=== PATIENT | female | born 1990 | race Caucasian/White ===

== ENCOUNTER → 2017-05-26 | Outpatient (CLI) | payer OTHER ==
[~2017-05-26] MED LIST: BSP5 PO; BUPR-79 PO; CNC/18 PO; CNC/54 PO; IBUP-1451 PO
[2017-05-26 12:30] LABS: BASO % 0.7 %; BASO ABS # 0.04 K/uL (0-0.2); COMPLETE YES; EOS % 3.5 %; HEMATOCRIT 43.3 % (37-47); IG% 0.2 %; LYMPH % 31.5 %; MEAN CELL VOLUME 93.1 fL (80-100); MEAN CORPUSCULAR HEMOGLOBIN 30.8 pg (25-34); MEAN PLATELET VOLUME 10.2 fL (7.4-10.4); MONO % 9.6 %; NEUT % 54.5 %; PLATELET COUNT 310 K/uL (130-400); RED BLOOD COUNT 4.65 M/uL (4.2-5.4); WHITE BLOOD COUNT 6.04 K/uL (4.8-10.8)
[2017-05-26 13:31] LABS: ALT/SGPT 26 U/L (12-78); BLOOD UREA NITROGEN 13 mg/dl (7-18); BUN/CREATININE RATIO 16.7 (10-20); CALCIUM 9.5 mg/dl (8.5-10.1); CARBON DIOXIDE 27 mmol/L (21-32); CHLORIDE 108 mmol/L (98-107); CHOLESTEROL 125 mg/dl (0-200); CREATININE 0.75 mg/dl (0.60-1.20); GLUCOSE 78 mg/dl (70-99); POTASSIUM 3.9 mmol/L (3.5-5.1); SODIUM 141 mmol/L (136-145); TRIGLYCERIDES 111 mg/dl (0-150); VERY LOW DENSITY LIPOPROT CALC 22 mg/dl
[2017-05-26 13:40] LABS: ALKALINE PHOSPHATASE 81 U/L (45-117); AST/SGOT 19 U/L (15-37); CHOLESTEROL/HDL RATIO 2.9; HDL CHOLESTEROL 43 mg/dl; LDL CHOLESTEROL CALCULATED 60 mg/dl
== END | disposition home or self-care (01) ==
LOC: C.LABBFT 10:01
PROVIDERS: ATTEND Physician Assistant Medical
DX: M79.673 Pain in unspecified foot (principal)

== ENCOUNTER → 2018-01-29 | Day surgery (SDC) | payer OTHER ==
[2018-01-27 11:13] VITALS: BMI 48.0
--- NOTE | 2018-01-27 11:37 | PAT Medication Instructions ---
Service Date January 27, 2018. Current Home Medication List Misc Natural Products (Apple Cider Vinegar Diet), 1 CAP PO Medication Instructions For Your Scheduled Surgery - Hold the following medications the morning of surgery: Misc Natural Products (Apple Cider Vinegar Diet), 1 CAP PO If you have any questions please call us at [phone] or [phone] or [phone]
--- NOTE | 2018-01-27 11:48 | HISTORY & PHYSICAL EXAMINATION ---
DATE OF ADMISSION: 02/16/2018 PREOPERATIVE HISTORY AND PHYSICAL ADMITTING DIAGNOSES: 1. Desires permanent surgical sterilization. 2. Morbid obesity. ADMISSION HISTORY: The patient is a 27-year-old 3, para 2, AB 1, who is admitted for laparoscopic tubal ligation for permanent surgical sterilization. The patient was seen in the office and counseled. She adamantly desires no further childbearing capacity and wishes to proceed. PAST MEDICAL HISTORY: OBSTETRICAL : x2. GYNECOLOGICAL: History of abnormal Pap smears. MEDICAL: Attention deficit hyperactivity disorder, varicose veins. SURGICAL: Appendectomy, inner ear surgery. ALLERGIES: TO PENICILLIN. SOCIAL HISTORY: Positive for smoking. FAMILY HISTORY: Noncontributory. REVIEW OF SYSTEMS: As per HPI. PHYSICAL EXAMINATION: GENERAL: Physical examination today shows a morbidly obese female, in no acute distress. VITAL SIGNS: Blood pressure 120/68. Height of 5 feet 6 inches and weight of 297 pounds. HEENT EXAMINATION: Unremarkable. NECK: Supple. LUNGS: Clear. HEART: With a regular rhythm and rate. ABDOMEN: Obese, nontender. No palpable masses. No rebound, no guarding, no organomegaly. Positive bowel sounds. PELVIC EXAMINATION: Shows normal external genitalia. Vaginal vault is pink and rugated. The cervical os is multiparous and closed. Bimanual examination, the uterus and adnexa are not palpable secondary to the patient's habitus. RECTAL EXAMINATION: Confirmatory. EXTREMITY EXAMINATION: No deep calf tenderness. NEUROLOGICAL EXAMINATION: Grossly intact. IMPRESSION: This is a 27-year-old 3, para 2, AB 1, requesting permanent surgical sterilization. PLAN: The risks, benefits, and alternatives to the surgery have been discussed. While the benefits will be permanent surgical sterilization, the risks are bleeding, infection, inadvertent injury to internal organs requiring additional surgery and treatment, regret, and failure of the procedure itself. Failure rate quoted at 3-5%. The patient understands, the permit has been signed, and she wishes to proceed.
[2018-01-27 12:06] LABS: BASO % 0.4 %; BASO ABS # 0.03 K/uL (0-0.2); EOS % 1.4 %; HEMATOCRIT 39.6 % (37-47); HEMOGLOBIN 13.8 g/dL (12.0-16.0); IG# 0.02 K/uL (0.00-0.02); LYMPH % 30.9 %; LYMPH ABS # 2.21 K/uL (1.2-3.4); MEAN CORPUSCULAR HEMOGLOBIN 31.4 pg (25-34); MEAN CORPUSCULAR HGB CONC 34.8 g/dl (32-36); MEAN PLATELET VOLUME 9.7 fL (7.4-10.4); MONO ABS # 0.57 K/uL (0.11-0.59); NEUT ABS # 4.23 K/uL (1.4-6.5); PLATELET COUNT 309 K/uL (130-400); RED CELL DISTRIBUTION WIDTH CV 12.4 % (11.5-14.5); RED CELL DISTRIBUTION WIDTH SD 40.8 fL (36.4-46.3); WHITE BLOOD COUNT 7.16 K/uL (4.8-10.8)
[2018-01-27 13:42] LABS: CALCIUM 9.1 mg/dl (8.5-10.1); CREATININE 0.89 mg/dl (0.60-1.20); POTASSIUM 3.9 mmol/L (3.5-5.1)
[~2018-01-29] VITALS: Ht 167.6 cm; Wt 134.8 kg
[~2018-01-29] MED LIST changes: +ATROPINE SULFATE 0.1 MG/ML 5ML SYR IV PRN; -BSP5 PO; +BUPIVACAINE 0.5 % 5 MG/1 ML MPF 30ML VIAL INJ ONE; -BUPR-79 PO; -CNC/18 PO; -CNC/54 PO; +DEXAMETHASONE SOD INJ 4 MG/ML VIAL ONE; +EpHEDrine SULFATE INJ 50 MG/ML AMP IV PRN; +FENTANYL CITRATE INJ 50 MCG/1 ML 2 ML VIAL ONE; +FLUMAZENIL 0.1 MG/1 ML 10 ML VIAL IV PRN; +GLYCOPYRROLATE INJ 0.2 MG/ML VIAL ONE; +HYDROmorphone INJ 0.5 MG/0.5 ML SYR IV PRN; -IBUP-1451 PO; +KETOROLAC TROMETHAMINE 30 MG/ML VIAL ONE; +LABETALOL HCL IV 5 MG/ML 20ML IV PRN; +LACTATED RINGER'S 1000ML 1,000 ML IV SCH; +LIDOCAINE HCL 2% 2 ML VIAL (20MG/ML) ONE; +MEPERIDINE HCL 25 MG/ML CARP IV PRN; +MIDAZOLAM HCL 1 MG/ML 2ML VIAL ONE; +MISCTAB PO; +NALOXONE HCL 0.4 MG/1 ML VIAL/CARP IV PRN; +NEOSTIGMINE METHYLSULFATE 5 MG/5 ML SYR ONE; +ONDANSETRON INJ 2 MG/ML 2 ML VIAL IV PRN; +ONDANSETRON INJ 2 MG/ML 2 ML VIAL ONE; +OXYC-57 PO; +OXYCODONE/ACETAMINOPHEN 5-325 TAB PO PRN; +PHENYLEPHRINE 100MCG/ML 5ML SYR IV PRN; +PROPOFOL IV EMULSION 10 MG/ML 20 ML VIAL ONE; +ROCURONIUM BROMIDE 10 MG/ML 5 ML VIAL ONE; +SODIUM CHLORIDE 0.9% 1000ML 1,000 ML IV SCH
[2018-01-29 09:15] VITALS: BP 126/61; PULSE 75; TEMP 36.9; O2SAT 97; Ht 167.6 cm; Wt 134.8 kg
--- NOTE | 2018-01-29 10:13 | History & Physical Bridge Note ---
H&P Re-Evaluation Bridge Note: I have examined the patient, reviewed the History & Physical and in the interval since the performance of the History & Physical I have noted the following changes of clinical significance: No changes noted
--- NOTE | 2018-01-29 12:41 | [facility] Post Operative Brief Note ---
Immediate Operative Summary Operative Date January 29, 2018. Pre-Operative Diagnosis Desires permanent surgical sterilization Post-Operative Diagnosis Desires permanent surgical sterilization Procedure(s) Performed Laparoscopic bilateral tubal sterilization Surgeon Dr. Jae Lerma MD [employer] Surgeon(s) None Estimated Blood Loss minimal Findings See Below Normal appearing uterus, tubes, ovaried, bilateral fulguration of tubes Fluids (cc crystalloids) 750 Specimens None per surgeon Drains None Anesthesia Type General Complication(s) none Disposition Accompanied Pt To Recover: yes Disposition: Recovery Room / PACU
--- NOTE | 2018-01-29 12:47 | Discharge Instructions-SurgCtr ---
Discharge Instructions Date of Service January 29, 2018. Visit Reason for Visit: Encounter For Sterilization Discharge Discharge Diagnosis / Problem: same Discharge Goals Goal(s): Therapeutic intervention Activity Recommendations Activity Limitations: as noted below Anesthesia . Post Anesthesia Instructions: If you have had General Anesthesia or IV Sedation: * Do not drive today. * Resume driving when surgeon permits. * Do not make important decisions or sign legal documents today. * Call surgeon for: 1. Temperature elevations greater than 101 degrees F. 2. Uncontrollable pain. 3. Excessive bleeding. 4. Persistent nausea and vomiting. 5. Medication intolerance (nausea, vomiting or rash). * For nausea and vomiting use only clear liquids such as: tea, soda, bouillon until nausea subsides, then gradually increase diet as tolerated. * If you have any concerns or questions, call your surgeon's office. If physician is unavailable and it is an emergency, call 911 or go to the nearest emergency room. . Instructions / Follow-Up Instructions / Follow-Up ACTIVITY RECOMMENDATIONS: * Rest the first 2-3 days. You should be back to your normal activity levels by day 3. * No heavy lifting for 2 weeks. * No intercourse, tampons or douching for 1-2 weeks. * You may shower the next day. * Do not drive anytime that you are taking narcotic pain medicines. RETURN TO SCHOOL/WORK: * May return to school or work after 2-3 days. DIET: Nausea may occur in the immediate post-operative period. If so, take clear liquids such as tea, bouillon, apple juice until all nausea has subsided, then resume usual diet. MEDICATIONS: Resume previous medications unless instructed otherwise by your surgeon. Ibuprofen 200mg 2-3 tablets every 4-6 hours as needed -- OR -- Aleve 2 tablets every 8-12 hours as needed for post-operative discomfort Medications are over the counter. Tylenol may be used if above medications are contraindicated or not preferred. Medication should be taken with food or milk. Do not take on an empty stomach. SPECIAL CARE INSTRUCTIONS: * Check temperature twice daily for one week. report any elevation over 101 degrees. * You may experience some vagina spotting and/or bleeding. This is normal for 1 -2 weeks and should not be heavier than a normal period. If it is unusual in amount, call your physician. * Post-operative discomfort may consist of a sore throat, a "bloated" feeling and pain in the shoulders. these are normal symptoms, which usually only last for 2-3 days. * Remove band-aids tomorrow and shower. There is no need to replace band-aids unless there is drainage or discomfort. FOLLOW UP VISIT: Call your doctor's office for a post-operative 2 week visit if not already scheduled. Diet Recommendations Home Diet: resume previous diet Procedures Procedures Performed: Laparoscopic bilateral tubal sterilization Pending Studies Studies pending at discharge: no Medical Emergencies . Who to Call and When: Medical Emergencies: If at any time you feel your situation is an emergency, please call 911 immediately. . Non-Emergent Contact Non-Emergency issues call your: [employer] Call Non-Emergent contact if: you have a fever, temperature is above 100.5, wound has increased drainage, wound has increased redness . . "Provider Documentation" section prepared by Jae Lerma. . [place] Drug Monitoring Program Search Results: patient reviewed within database, no issues identified
[2018-01-29] MEDS: FENTANYL CITRATE INJ 50 MCG/1 ML 2 ML VIAL IV PRN ×2 (13:02→13:22)
--- NOTE | 2018-01-29 13:10 | Anesthesiology Progress Note ---
Anesthesia Post Op Note Date & Time January 29, 2018 at 13:10 Vital Signs Pain Intensity: 3 Vital Signs Past 12 Hours Date Time Temp Pulse Resp B/P (MAP) Pulse Ox O2 Delivery O2 Flow Rate FiO2 01/29/18 13:00 36.1 75 14 118/60 100 Oxymask 10 01/29/18 12:52 36.1 75 14 180/82 99 Oxymask 10 01/29/18 09:15 36.9 75 16 126/61 (82) 97 Room Air Notes Mental Status: alert / awake / arousable, participated in evaluation Pt Amnestic to Procedure: Yes Nausea / Vomiting: adequately controlled Pain: adequately controlled Airway Patency, RR, SpO2: stable & adequate BP & HR: stable & adequate Hydration State: stable & adequate Anesthetic Complications: no major complications apparent
[2018-01-29 13:45] VITALS: BP 107/53; PULSE 57; TEMP 36.3; O2SAT 97
[2018-01-29 14:15] VITALS: BP 127/60; PULSE 73; O2SAT 99
[2018-01-29 14:45] VITALS: BP 112/56; PULSE 64; TEMP 36.4; O2SAT 97
--- NOTE | 2018-01-29 16:08 | OPERATIVE REPORT ---
DATE OF OPERATION: 01/29/2018 PREOPERATIVE DIAGNOSIS: Desired permanent surgical sterilization. POSTOPERATIVE DIAGNOSIS: Same. PROCEDURE PERFORMED: Laparoscopic tubal ligation. SURGEON: Jae Lerma MD. ANESTHESIA: General. FINDINGS: Laparoscopic examination of the pelvis showed normal appearing uterus, tubes, and ovaries. Bilateral fulguration of the fallopian tube in the proximal third until resistance met 0. PROCEDURE IN DETAIL: The patient was taken to the operating room, and after general anesthesia, was placed in dorsal lithotomy position and draped and prepped in the usual fashion. Bladder was drained of any residual urine. NuvaRing was removed for the procedure. Single tooth tenaculum was used to grasp the anterior lip of the cervix. [place] cannula was inserted to the cervical os and fastened to the tenaculum. Small subumbilical incision was made. The Veress needle was inserted into the pelvic cavity, which was then insufflated with 3 L of CO2. Veress needle was removed, and then the sharp trocar was introduced under direct laparoscopic guidance. A suprapubic incision was made, and a 5 mm port was inserted. Pelvic organs were visualized with the description as above. Bipolar cautery instrument was inserted through the suprapubic trocar. The fallopian tubes were cauterized bilaterally in the proximal third in 3 contiguous [place] until resistance met 0. Hemostasis was achieved. The CO2 was allowed to escape from the pelvic cavity. The trocars were removed under direct laparoscopic guidance. The incisions were closed with 4-0 Vicryl subcuticular sutures. [place] cannula and tenaculum were removed from the cervix. NuvaRing was reinserted. The patient was taken out of dorsal lithotomy to recovery room in satisfactory condition. I attest to the content of the Intraoperative Record and any orders documented therein. Any exception s are noted below.
== END | disposition home or self-care (01) ==
LOC: C.ACU 08:46
PROVIDERS: ATTEND Obstetrics & Gynecology
DX: Z30.2 Encounter for sterilization (principal); F17.200 Nicotine dependence, unspecified, uncomplicated; E66.01 Morbid (severe) obesity due to excess calories; Z68.42 Body mass index [BMI] 45.0-49.9, adult; Z88.0 Allergy status to penicillin; Z90.89 Acquired absence of other organs; Z98.890 Other specified postprocedural states